=== PATIENT | male | born 1980 | race Caucasian/White ===

== ENCOUNTER 2023-09-02 10:44 | Emergency (ER) | payer BC, SELFPAY ==
--- NOTE | ~2023-09-02 | CT_ITS ---
EXAMINATION: CT abdomen pelvis wo con DATE: 09/02/2023 13:13 INDICATION: Right flank pain. TECHNIQUE: Computed tomography (CT) of the abdomen and pelvis was performed without intravenous contr ast. Automated exposure control and iterative reconstruction technique were employed. The dose-length product was 1382.69 mGy-cm. COMPARISON: None. FINDINGS: The visualized portions of the lung bases demonstrate minimal atelectasis. No pleural effus ion. The heart size is normal. No pericardial effusion. There is diffuse hepatic steatosis. The gallb ladder, spleen, pancreas, adrenal glands, and left kidney are normal. There is mild right hydronephro sis and hydroureter. There is a 3 mm stone in distal right ureter. There are no dilated loops of sinan l. The appendix is normal. There are no pathologically enlarged lymph nodes. There is no free intrape ritoneal fluid. There are chronic bilateral L5 pars defects. There is 3 mm anterolisthesis of L5 on S 1. There is mild chronic anterior wedging of multiple lower thoracic vertebral bodies. IMPRESSION: 1. 2 mm stone in distal right ureter with mild right hydronephrosis and hydroureter. 2. Diffuse hepatic steatosis. Reviewed, dictated and finalized at location A. IMPRESSION: 1. 2 mm stone in distal right ureter with mild right hydronephrosis and hydrour eter. 2. Diffuse hepatic steatosis.
[2023-09-02 11:03] VITALS: BP 161/95; PULSE 85; RESP 16; TEMP 36.8; O2SAT 99
[2023-09-02 11:32] LABS: Appearance Urine Clear (Clear); Bacteria Urine None Seen /hpf; Bilirubin Urine Negative (Negative); Blood Urine 1+ (Negative); Color Urine Yellow (Yellow); Glucose Urine UA Negative (Negative); Ketones Urine Negative (Negative); Leukocyte Esterase Ur Negative LEU/UL (Negative); Nitrate Urine Negative (Negative); Non Pathogenic Casts 0-2; Protein Urine Negative (Negative); RBC Urine 0-2 /hpf (0-2); Specific Grav Ur 1.014 (1.001-1.035); Squamous Epithelial Cell Urine None Seen /hpf (Few); Urobilinogen Urine 0.2 mg/dL (<2.0); WBC Urine 0-5 /hpf (0-3)
[2023-09-02 11:38] LABS: Add Urine Microscopic? YES
[2023-09-02 13:02] LABS: Basophils Absolute Auto 0.1 K/mm3 (0.0-0.1); Basophils Percent Auto 0.4 % (0.2-1.2); Eosinophils Absolute Auto 0.1 K/mm3 (0-0.3); Eosinophils Percent Auto 0.7 % (0-4.4); Hematocrit 51.5 % (42.0-52.0); Hemoglobin 16.9 g/dL (14.0-18.0); Immature Granulocyte Absolute 0.04 K/mm3 (0.00-0.031); Immature Granulocyte Percent A 0.3 % (0-0.5); Lymphocytes Percent Auto 16.9 % (18.3-44.2); Mean Corpuscular HGB Conc 32.8 g/dl (32-36); Mean Corpuscular Hemoglobin 27.8 pg (26-34); Mean Corpuscular Volume 84.7 fl (80-100); Mean Platelet Volume 10.4 fl (7.4-10.4); Monocytes Absolute Auto 1.2 K/mm3 (0.1-0.6); Monocytes Percent Auto 8.7 % (2.6-8.5); Neutrophils Absolute Auto 10.4 K/mm3 (1.3-6.7); Platelet Count Result 232 k/mm3 (150-375); Red Blood Count 6.08 M/mm3 (4.6-6.20); Red Cell Distribution Width 12.5 % (11.5-14.5); White Blood Count 14.2 K/mm3 (4.5-10.0)
[2023-09-02 13:12] LABS: INR 0.9; Prothrombin Time 12.8 Seconds (11.1-14.7)
[2023-09-02 13:16] LABS: Alanine Aminotransferase 53 U/L (6-50); Albumin Level 4.9 g/dL (3.5-5.1); Alkaline Phosphatase 96 U/L (38-126); Anion Gap 7 mmol/L (4-12); Aspartate Amino Transferase 43 U/L (17-59); Blood Urea Nitrogen 17 mg/dL (9-20); Calcium 9.6 mg/dL (8.4-10.2); Carbon Dioxide 32 mmol/L (22-30); Chloride 101 mmol/L (98-107); Estimated CRCL calculation 80 ml/min; Estimated Glomerular Filt Rate 56; Glucose 109 mg/dL (65-110); Potassium 3.1 mmol/L (3.4-5.0); Sodium 140 mmol/L (137-145)
--- NOTE | 2023-09-02 13:49 | ED.GENADULT ---
HPI - General Adult General Chief complaint: Urogenital-Male Stated complaint: flank pain - frequency urinatio Time Seen by Provider: 09/02/23 11:47 History of Present Illness HPI narrative: 42-year-old male presenting to the emergency department for evaluation of right-sided flank pain that wraps into his abdomen. Patient states that yesterday he is having right flank pain that was approximately 8-9 in severity. Patient states the pain has moved lowered to his lower back and improved to a 1-3. Patient denies any prior history of kidney stones. Related Data Allergies Allergy/AdvReac Type Severity Reaction Status Date / Time No Known Allergies Allergy Verified 09/02/23 10:45 Review of Systems Review of Systems: All systems reviewed & are unremarkable except as noted in HPI and below Exam Narrative: APPEARANCE: Well appearing, no pain, no distress, well-nourished. HEAD: normocephalic, atraumatic. EYES: PERRLA/EOMI, conjunctivae clear. NOSE: Normal no drainage EARS:TMS clear with good light reflex. THROAT: Pharynx clear, no exudate. NECK: Supple. No adenopathy, no masses. RESPIRATORY: Airway patent, respirations nonlabored. Clear to auscultation bilaterally, no rales, rhonchi, wheezing. CARDIOVASCULAR: Regular rate and rhythm without murmurs rubs or gallops. ABDOMINAL: Soft, nontender, nondistended, normal bowel sounds MUSCULOSKELETAL: Moves all extremities. Strength/ROM intact, No edema, No calf tenderness. NEURO: Alert. Cranial nerves II through XII intact. Grossly in SKIN: Warm, dry. Normal Color Course Course Emergency Course: Patient was diagnosed with a kidney stone and encouraged close follow-up with Urology. Vital Signs Vital signs: Vital Signs Temperature 98.3 F 09/02/23 11:03 Pulse Rate 85 09/02/23 11:03 Respiratory Rate 16 09/02/23 11:03 Blood Pressure 161/95 H 09/02/23 11:03 Pulse Oximetry 99 09/02/23 11:03 Temperature 98.3 F 09/02/23 11:03 Pulse Rate 85 09/02/23 11:03 Respiratory Rate 16 09/02/23 11:03 Blood Pressure 161/95 H 09/02/23 11:03 Pulse Oximetry 99 09/02/23 11:03 Medical Decision Making MDM Narrative Medical decision making narrative: 42-year-old male presenting emergency department for evaluation of right flank pain. Patient was afebrile but does have a leukocytosis of 14.2 with a stable hemoglobin patient has a mildly elevated creatinine but no baseline is known. UA does show some hematuria but no underlying evidence of infection. Patient has a 2 mm distal right ureteral calculi. At time of evaluation patient states his pain is significantly improved. Patient will be discharged home with Flomax, Zofran and [place] along with instructions for stone collection. Patient will be provided outpatient follow-up with Urology. Patient is also educated on reasons to return to the emergency department. Differential Diagnosis Differential Diagnosis: Urinary tract infection, kidney stone, diverticulitis, obstruction Vital Signs Vital Signs: Vital Signs Temperature 98.3 F 09/02/23 11:03 Pulse Rate 85 09/02/23 11:03 Respiratory Rate 16 09/02/23 11:03 Blood Pressure 161/95 H 09/02/23 11:03 Pulse Oximetry 99 09/02/23 11:03 Temperature 98.3 F 09/02/23 11:03 Pulse Rate 85 09/02/23 11:03 Respiratory Rate 16 09/02/23 11:03 Blood Pressure 161/95 H 09/02/23 11:03 Pulse Oximetry 99 09/02/23 11:03 Lab Data 09/02/23 12:52 09/02/23 12:52 Labs: Lab Results 09/02/23 09/02/23 Range/Units 11:14 12:52 WBC 14.2 H (4.5-10.0) K/mm3 RBC 6.08 (4.6-6.20) M/mm3 Hgb 16.9 (14.0-18.0) g/dL Hct 51.5 (42.0-52.0) % MCV 84.7 (80-100) fl MCH 27.8 (26-34) pg MCHC 32.8 (32-36) g/dl RDW 12.5 (11.5-14.5) % Plt Count 232 (150-375) k/mm3 MPV 10.4 (7.4-10.4) fl Immature Gran % (Auto) 0.3 (0-0.5) % Neut % (Auto) 73.0 (45.5-73.1) % Lymph % (Auto) 16.9 L (18
== END 2023-09-02 14:38 | disposition home or self-care (01) ==
PROVIDERS: Emergency Provider Emergency Medicine; PCP Family Medicine
DX: N20.1 Calculus of ureter (principal)
CPT/HCPCS: 36415; 74176; 80053; 81001; 85025; 85610; 85730; 99284